=== PATIENT | female | born 1985 ===

== ENCOUNTER 2019-07-16 12:07 | Emergency (ER) | payer MEDICAID ==
[2019-07-16 12:18] VITALS: BP 144/63
[2019-07-16] MEDS ORDERED: PEPCID PO ONE (14:35)
[2019-07-16] MEDS ORDERED: DELTASONE PO ONE (14:35)
[2019-07-16] MEDS ORDERED: LIDOCAINE VISCOUS 2% PO ONE (14:35)
[2019-07-16] MEDS ORDERED: TYLENOL PO ONE (14:35)
--- NOTE | 2019-07-16 14:39 | Emergency Department Report ---
ED General Adult HPI - General Chief complaint: Allergic Reaction Stated complaint: ALLERGIC REACTION/SWOLLEN FACE Time Seen by Provider: 07/16/19 14:34 Source: patient Mode of arrival: Ambulatory Limitations: No Limitations - History of Present Illness Initial comments: 34 year old -[place] female presents to the emergency room reporting she is having a reaction to the medicine that she took for yeast infection yesterday. Patient reports that she took Diflucan last night and noted that she started to have swelling of her lower lip and tingling of her mouth. Patient states that she called her [employer] provider and he told her to discontinue medication and to follow-up in the emergency room. 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 Patient also comes in very tearful as she is suffering from the of her oldest child. Patient reports that she's been feeling down and having moments of crying spells. -: Last night Location: face (lip and tongue) Quality: burning, aching Consistency: constant Improves with: none Worsens with: none - Related Data Previous Rx's Medication Instructions Recorded Last Taken Type Famotidine [Pepcid] 10 mg PO BID #10 tablet 07/16/19 Unknown Rx Prednisone [predniSONE 5 mg (6-Day 5 mg PO .TAPER #1 tab.ds.pk 07/16/19 Unknown Rx Pack, 21 Tabs)] Valacyclovir HCl [Valtrex] 1,000 mg PO QDAY #5 tablet 07/16/19 Unknown Rx Allergies Allergy/AdvReac Type Severity Reaction Status Date / Time diphenhydramine Allergy Unknown Verified 07/16/19 12:10 [From Benadryl] fluconazole Allergy Swelling Verified 07/16/19 12:16 Penicillins Allergy Unknown Verified 07/16/19 12:10 ED Review of Systems ROS: Stated complaint: ALLERGIC REACTION/SWOLLEN FACE Other details as noted in HPI Comment: All other systems reviewed and negative ED Past Medical Hx - Surgical History Past Surgical History?: No - Social History Smoking Status: Never Smoker Substance Use Type: None - Medications Home Medications: Home Medications Medication Instructions Recorded Confirmed Last Taken Type Famotidine [Pepcid] 10 mg PO BID #10 tablet 07/16/19 Unknown Rx Prednisone [predniSONE 5 mg (6-Day 5 mg PO .TAPER #1 tab.ds.pk 07/16/19 Unknown Rx Pack, 21 Tabs)] Valacyclovir HCl [Valtrex] 1,000 mg PO QDAY #5 tablet 07/16/19 Unknown Rx ED Physical Exam - General Limitations: No Limitations General appearance: alert, in no apparent distress, other (tearful) - Head Head exam: Present: atraumatic, normocephalic - Eye Eye exam: Present: normal appearance - Expanded ENT Exam Expanded Mouth exam: Present: other (lower lip swelling tender to touch). Absent: drooling, trismus, muffled voice, tongue normal (macular lesions on tongue) Throat exam: Positive: normal inspection - Neck Neck exam: Present: normal inspection, full ROM. Absent: lymphadenopathy - Respiratory Respiratory exam: Present: normal lung sounds bilaterally. Absent: respiratory distress - Neurological Exam Neurological exam: Present: alert, oriented X3 - Psychiatric Psychiatric exam: Present: depressed - Skin Skin exam: Present: warm, dry, intact, normal color. Absent: rash ED Course Vital Signs 07/16/19 12:16 Temperature 98.5 F Pulse Rate 78 Respiratory 16 Rate Blood Pressure 144/63 [Left] O2 Sat by Pulse 100 Oximetry Critical care attestation.: If time is entered above; I have spent that time in minutes in the direct care of this critically ill patient, excluding procedure time. ED Disposition Clinical Impression: Grief, Herpes genitalis in women Allergic reaction caused by a drug Qualifiers: Encounter type: initial encounter Qualified Code(s): T78.40XA - Allergy, unspecified, initial encounter Depression Qualifiers: Depression Type: unspecified Qualified Code(s): F32.9 - Major depressive disorder, single episode, unspecified Disposition: DC-01 TO HOME OR SELFCARE Is pt being admited?: No Does the pt Need Aspirin: No Condition: Stable Instructions: Antibiotic Medication Allergy (ED), Depression (ED), Grief and Loss (ED) Additional Instructions: Very important for you to follow-up with mental health provider. Prescriptions: Famotidine [Pepcid] 10 mg PO BID #10 tablet Prednisone [predniSONE 5 mg (6-Day Pack, 21 Tabs)] 5 mg PO .TAPER #1 tab.ds.pk Valacyclovir HCl [Valtrex] 1,000 mg PO QDAY #5 tablet [facility] Forms: Work/School Release Form(ED)
== END 2019-07-16 15:21 | disposition home or self-care (01) ==
LOC: ED 12:07
DX: A60.04 Herpesviral vulvovaginitis (principal); F32.9 Major depressive disorder, single episode, unspecified; F43.21 Adjustment disorder with depressed mood; Z79.899 Other long term (current) drug therapy; Z88.0 Allergy status to penicillin; Z88.8 Allergy status to other drugs, medicaments and biological substances
CPT/HCPCS: 99282; J7512